=== PATIENT | female | born 2000 ===

== ENCOUNTER 2023-05-10 20:24 | Emergency (ER) | payer BC, OTHER ==
[2023-05-10] MEDS: Sodium Chloride 0.9% 1,000 ML IV SCH (20:24)
[2023-05-10] MEDS ORDERED: Sodium Chloride 0.9% 10 ML Syringe FLUSH PRN (20:35)
[2023-05-10 20:41] LABS: HEMATOCRIT 37.1 % (34.2-48.2); HEMOGLOBIN 12.1 g/dL (11.4-15.5); MEAN CORPUSCULAR HEMOGLOBIN 29.1 pg (23.9-33.9); MEAN CORPUSCULAR HGB CONC 32.7 g/dL (31.9-34.8); MEAN CORPUSCULAR VOLUME 89.1 fL (76.7-100.5); MEAN PLATELET VOLUME 8.6 fL (7.1-12.4); PLATELET COUNT,PLT 385 x10(3)uL (151-488); RED BLOOD CELL COUNT 4.16 x10(6)uL (3.60-5.20); RED CELL DISTRIBUTION WIDTH 13.8 % (12.3-16.5)
[2023-05-10 20:51] LABS: INR 1.06 (1.00-1.24); PROTHROMBIN TIME 10.9 sec (9.0-11.1); PTT,PARTIAL THROMBOPLSTIN TIME 33.6 SECONDS (24.4-33.2)
[2023-05-10 20:52] LABS: BILIRUBIN,URINE NEGATIVE (NEGATIVE); GLUCOSE,URINE 100 mg/dL (NORMAL); KETONES,URINE NEGATIVE (NEGATIVE); LEUKOCYTE ESTERASE,URINE NEGATIVE (NEGATIVE); NITRITE,URINE NEGATIVE (NEGATIVE); OCCULT BLOOD,URINE LARGE (NEGATIVE); PROTEIN,URINE 30 mg/dL (NEGATIVE); UROBILINOGEN,URINE NORMAL (NEGATIVE)
[2023-05-10 20:53] LABS: APPEARANCE,URINE CLEAR (CLEAR); BACTERIA,URINE RARE (NS); COLOR,URINE YELLOW (YELLOW); SQUAMOUS EPITHELIAL CELLS,UR RARE (NS,R,O); WBC,URINE 0-5 (0-5)
[2023-05-10 20:54] LABS: AMORPHOUS SEDIMENT,URINE FEW
[2023-05-10 21:00] LABS: BLOOD UREA NITROGEN,BUN 21 mg/dL (7-18); CARBON DIOXIDE,CO2 22 mmol/L (21-32); CHLORIDE,CL 104 mmol/L (100-110); CREATININE 1.4 mg/dL (0.55-1.02); ESTIMATED GFR 55 mL/min (>60); GLUCOSE RANDOM 293 mg/dL (80-116); POTASSIUM,K 3.6 mmol/L (3.5-5.3); SODIUM,NA 140 mmol/L (135-145)
[2023-05-10 21:01] LABS: ALANINE AMINOTRANSFERASE,ALT 87 U/L (12-36); ALKALINE PHOSPHATASE 97 IU/L (56-112); ASPARTATE AMNIOTRANSFERASE,AST 96 IU/L (5-25); BILIRUBIN TOTAL 0.2 mg/dL (0.1-1.3)
[2023-05-10] MEDS: fentaNYL 100 MCG/2 ML SDV ONE (21:17)
[2023-05-10 21:41] LABS: LYMPHOCYTES PERCENT MAN 57 % (13-37); MONOCYTES PERCENT MAN 8 % (4-12); SEG NEUTROPHILS PERCENT MAN 35 % (46-82)
== END 2023-05-10 20:59 ==
LOC: FB.ED 20:24
DX: T14.8XXA Other injury of unspecified body region, initial encounter (principal); V03.10XA Pedestrian on foot injured in collision with car, pick-up truck or van in traffic accident, initial encounter; Y92.520 Airport as the place of occurrence of the external cause
CPT/HCPCS: 31500; 36415; 51702; 71045; 72170; 80053; 81001; 81025; 85025; 85610; 85730; 92950; 99291; G0390; J7030